=== PATIENT | female | born 1990 | race Two or more races ===

== ENCOUNTER 2022-04-08 07:35 | Emergency (ER) | payer BC, OTHER ==
[2022-04-08 07:44] VITALS: BP 129/81; PULSE 96; RESP 20; TEMP 99.3; BMI 27.4
== END 2022-04-08 08:22 | disposition home or self-care (01) ==
LOC: FER 07:35
PROC: 0HQ1XZZ Repair Face Skin, External Approach (ICD-10-PCS; principal; 2022-04-08)
DX: S01.81XA Laceration without foreign body of other part of head, initial encounter (principal); W18.2XXA Fall in (into) shower or empty bathtub, initial encounter
CPT/HCPCS: 99282-25

== ENCOUNTER 2022-05-18 15:00 | Emergency (ER) | payer OTHER ==
[2022-05-18 15:19] VITALS: BP 149/82; PULSE 76; RESP 18; TEMP 99; BMI 27.4
[2022-05-18] MEDS ORDERED: SODIUM CHLORIDE 1,000 ML IV STA ×2 (15:39→16:33)
[2022-05-18] MEDS ORDERED: ONDANSETRON 4 MG/2 ML VIAL IVPUSH ONE (15:39)
[2022-05-18] MEDS ORDERED: KETOROLAC TROMETHAMINE 15 MG/ML VIAL IVPUSH ONE (15:40)
[2022-05-18] MEDS ORDERED: FAMOTIDINE 20 MG/50 ML IVPB 20 MG/50 ML MG IVPB ONE ×2 (15:40→15:55)
[2022-05-18] MEDS ORDERED: ONDANSETRON 4 MG/2 ML VIAL ONE (15:54)
[2022-05-18] MEDS ORDERED: KETOROLAC TROMETHAMINE 15 MG/ML VIAL ONE (15:55)
[2022-05-18 17:34] LABS: HCG,QUALITATIVE URINE Negative
[2022-05-18] MEDS ORDERED: METOCLOPRAMIDE HCL INJECTION 10 MG/2 ML VIAL IVPB ONE (18:40)
[2022-05-18] MEDS ORDERED: METOCLOPRAMIDE HCL INJECTION 10 MG/2 ML VIAL ONE (18:45)
== END 2022-05-18 20:59 | disposition home or self-care (01) ==
LOC: FER 15:00
PROC: 3E033GC Introduction of Other Therapeutic Substance into Peripheral Vein, Percutaneous Approach (ICD-10-PCS; principal; 2022-05-18)
DX: R11.2 Nausea with vomiting, unspecified (principal); E86.0 Dehydration
CPT/HCPCS: 81003; 84703; 99284-25

== ENCOUNTER 2024-05-25 22:47 | Emergency (ER) | payer BC, OTHER ==
[2024-05-25 22:57] VITALS: BP 141/72; PULSE 61; RESP 18; TEMP 98.1; BMI 24.5
[2024-05-25] MEDS ORDERED: ONDANSETRON *ODT* 4 MG TABLET ONE (22:58)
[2024-05-25] MEDS: ONDANSETRON *ODT* 4 MG TABLET SL ONE (23:01)
[2024-05-25 23:34] LABS: HEMATOCRIT 41.4 % (32.4-45.2); HEMOGLOBIN 13.7 G/dL (10.7-15.3); MCH 30.6 pg (25.7-33.7); MCHC 33.1 g/dl (32.0-36.0); MEAN CELL VOLUME 92.6 fl (80-96); MEAN PLT VOLUME 9.1 fl (7.5-11.1); RBC 4.47 10^6/uL (3.60-5.2); RDW 13.7 % (11.6-15.6); WHITE BLOOD COUNT 12.9 10^3/uL (4.0-10.8)
[2024-05-25 23:41] LABS: PLATELET ESTIMATE ADEQUATE
[2024-05-25 23:44] LABS: INR 1.04 (0.83-1.09); PROTHROMBIN TIME (PATIENT) 11.8 SEC (9.7-13.0)
[2024-05-25 23:52] LABS: ALBUMIN 4.6 g/dl (3.4-5.0); BILIRUBIN,TOTAL 0.4 mg/dl (0.2-1); CALCIUM 9.8 mg/dl (8.5-10.1); POTASSIUM 3.9 mmol/L (3.5-5.1); TOT PROT 7.4 g/dl (6.4-8.2)
[2024-05-26] MEDS: SODIUM CHLORIDE 0.9% 500 ML INFUS.BAG IV ONE
[2024-05-26] MEDS ORDERED: DICYCLOMINE HCL 10 MG CAPSULE ONE (01:42)
[2024-05-26] MEDS: DICYCLOMINE HCL 20 MG TABLET PO ONE (01:43)
[2024-05-26 02:11] LABS: HCG,QUALITATIVE URINE NEGATIVE
[2024-05-26 02:19] LABS: EPI CELLS 20 /uL (0-25.1); HYALINE CASTS 1 /uL (0-3.1); PH,URINE 6.5 (5.0-8.0); URINE APPEARANCE CLEAR; URINE BACTERIA 390 /uL (0-1359); URINE BILIRUBIN NEGATIVE (NEGATIVE); URINE COLOR YELLOW; URINE GLUCOSE (UA) 2+ (NEGATIVE); URINE KETONE 3+ (NEGATIVE); URINE LEUK ESTERASE TRACE (NEGATIVE); URINE NITRITE NEGATIVE (NEGATIVE); URINE PROTEIN NEGATIVE (NEGATIVE); URINE RBC 13 /uL (0-23.9); URINE UROBILINOGEN 0.2 mg/dL (0.2-1.0); URINE WBC 29 /uL (0-25.8)
== END 2024-05-26 01:58 | disposition home or self-care (01) ==
LOC: FER 22:47
DX: K29.00 Acute gastritis without bleeding (principal); R10.84 Generalized abdominal pain; R73.9 Hyperglycemia, unspecified; R11.0 Nausea
CPT/HCPCS: 36415; 74177-TC; 80053; 81003; 81025; 82962; 84703; 85027; 85610; 86850; 86900; 86901; 99285-25; Q0162; Q9967

== ENCOUNTER 2024-08-07 19:30 | Observation (INO) | payer BC ==
[2024-08-07] MEDS ORDERED: HALOPERIDOL LACTATE 5 MG/ML ONE (21:02)
[2024-08-07] MEDS: HALOPERIDOL LACTATE 5 MG/ML IM ONE (21:46)
[2024-08-07] MEDS ORDERED: ACETAMINOPHEN INJECTION 100 ML ONE (23:19)
[2024-08-07 23:39] LABS: HEMATOCRIT 42.8 % (32.4-45.2); HEMOGLOBIN 13.9 GM/dL (10.7-15.3); MCH 29.9 pg (25.7-33.7); MCHC 32.5 g/dl (32.0-36.0); MEAN CELL VOLUME 91.9 fl (80-96); MEAN PLT VOLUME 8.9 fl (7.5-11.1); PLATELET COUNT 310 10^3/uL (134-434); RBC 4.65 M/mm3 (3.60-5.2); RDW 13.2 % (11.6-15.6); WHITE BLOOD COUNT 21.8 K/mm3 (4.0-10.0)
[2024-08-07] MEDS ORDERED: FAMOTIDINE 20 MG/50 ML IVPB 20 MG/50 ML MG IVPB ONE (23:42)
[2024-08-07] MEDS: FAMOTIDINE 20 MG/50 ML IVPB 20 MG/50 ML MG IVPB ONE (23:42)
[2024-08-07] MEDS: SODIUM CHLORIDE 1,000 ML IV STA (23:42)
[2024-08-07] MEDS: ACETAMINOPHEN 1000 MG/100 ML BAG IVPB ONE (23:42)
[2024-08-07 23:58] LABS: POTASSIUM 3.7 mmol/L (3.5-5.1)
[2024-08-08] LABS: ALBUMIN 4.1 g/dl (3.4-5.0); CALCIUM 9.6 mg/dL (8.5-10.1)
[2024-08-08 00:01] LABS: BLOOD UREA NITROGEN 14.1 mg/dL (7-18)
[2024-08-08 00:04] LABS: CREATININE 1.1 mg/dL (0.55-1.3)
[2024-08-08 00:05] LABS: BILIRUBIN,TOTAL 0.6 mg/dL (0.2-1); TOT PROT 8.2 g/dl (6.4-8.2)
[2024-08-08] MEDS ORDERED: POTASSIUM CHLORIDE ORAL LIQUID 20 MEQ/15 ML ONE (00:19)
[2024-08-08] MEDS ORDERED: MAGNESIUM 1GM/D5W - 1 GM/100 ML IVPB IVPB ONE (00:19)
[2024-08-08] MEDS: MAGNESIUM 1GM/D5W - 1 GM/100 ML IVPB IVPB ONE (00:26)
[2024-08-08] MEDS: POTASSIUM CHLORIDE ORAL LIQUID 20 MEQ/15 ML PO ONE (00:26)
[2024-08-08 01:47] LABS: URINE APPEARANCE Error; URINE BILIRUBIN NEGATIVE (NEGATIVE); URINE COLOR YELLOW; URINE GLUCOSE (UA) TRACE (NEGATIVE); URINE KETONE 2+ (NEGATIVE); URINE LEUK ESTERASE NEGATIVE (NEGATIVE); URINE NITRITE NEGATIVE (NEGATIVE); URINE PROTEIN NEGATIVE (NEGATIVE); URINE UROBILINOGEN 0.2 mg/dL (0.2-1.0)
[2024-08-08 01:56] LABS: HCG,QUALITATIVE URINE Negative
[2024-08-08 02:46] LABS: ANISOCYTOSIS 2+; MACROCYTOSIS 0; OVALOCYTE 1+
[2024-08-08] MEDS ORDERED: ONDANSETRON 4 MG/2 ML VIAL IVPUSH PRN (06:29)
[2024-08-08 06:45] VITALS: BMI 25.2
[2024-08-08] MEDS: FLUoxetine HCL 20 MG CAPSULE PO SCH (10:51)
[2024-08-08] MEDS: busPIRone HCL 5 MG TABLET PO SCH (10:52)
[2024-08-08] MEDS: LACTATED RINGERS SOLUTION 1,000 ML/1,000 ML INFUS.BAG IV SCH (10:54)
[2024-08-08 16:04] VITALS: RESP 17
[2024-08-08 17:29] VITALS: BP 111/66; PULSE 93; TEMP 99.5
== END 2024-08-08 16:59 | disposition home or self-care (01) ==
LOC: JER 19:30 → JERBED 08-08 04:50 → J6S 08-08 06:17
PROVIDERS: ADMIT Internal Medicine; ATTEND Internal Medicine
PROC: 3E033GC Introduction of Other Therapeutic Substance into Peripheral Vein, Percutaneous Approach (ICD-10-PCS; principal; 2024-08-08)
PROC: 3E033NZ Introduction of Analgesics, Hypnotics, Sedatives into Peripheral Vein, Percutaneous Approach (ICD-10-PCS; 2024-08-08)
PROC: 3E023NZ Introduction of Analgesics, Hypnotics, Sedatives into Muscle, Percutaneous Approach (ICD-10-PCS; 2024-08-08)
PROC: 3E0337Z Introduction of Electrolytic and Water Balance Substance into Peripheral Vein, Percutaneous Approach (ICD-10-PCS; 2024-08-08)
DX: R11.2 Nausea with vomiting, unspecified (principal); F12.90 Cannabis use, unspecified, uncomplicated; F41.8 Other specified anxiety disorders; D72.829 Elevated white blood cell count, unspecified; Z87.738 Personal history of other specified (corrected) congenital malformations of digestive system
CPT/HCPCS: 36415; 71046-TC-FY; 74177-TC; 80053; 81003; 83735; 84484; 84703; 85025; 87086; 93005; 93010; 96361; 96365; 96367; 96372; 96375; 99285-25; G0378; J0131; Q9967

== ENCOUNTER 2024-11-03 12:57 | Emergency (ER) | payer OTHER ==
[2024-11-03 13:15] VITALS: BP 121/58; PULSE 66; RESP 20; TEMP 98.2; BMI 25.8
[2024-11-03] MEDS ORDERED: ONDANSETRON 4 MG/2 ML VIAL ONE (13:30)
[2024-11-03] MEDS ORDERED: FAMOTIDINE 20 MG/50 ML IVPB 20 MG/50 ML MG IVPB ONE (13:30)
[2024-11-03] MEDS: SODIUM CHLORIDE 1,000 ML IV STA (13:43)
[2024-11-03] MEDS: FAMOTIDINE 20 MG/50 ML IVPB 20 MG/50 ML MG IVPB ONE (13:44)
[2024-11-03] MEDS: ONDANSETRON 4 MG/2 ML VIAL IVPUSH ONE (13:44)
[2024-11-03 14:07] LABS: HEMATOCRIT 41.9 % (32.4-45.2); HEMOGLOBIN 14.1 G/dL (10.7-15.3); MCH 30.3 pg (25.7-33.7); MCHC 33.6 g/dl (32.0-36.0); MEAN CELL VOLUME 90.2 fl (80-96); MEAN PLT VOLUME 9.6 fl (7.5-11.1); PLATELET COUNT 280.2 10^3/uL (134-434); RBC 4.65 10^6/uL (3.60-5.2); RDW 13.4 % (11.6-15.6); WHITE BLOOD COUNT 16.4 10^3/uL (4.0-10.8)
[2024-11-03 14:10] LABS: ALBUMIN 4.6 g/dl (3.4-5.0); BILIRUBIN,TOTAL 0.5 mg/dl (0.2-1); CALCIUM 9.7 mg/dl (8.5-10.1); CREATININE 0.9 mg/dl (0.6-1.3); MAGNESIUM 1.9 mg/dL (1.8-2.4); POTASSIUM 3.7 mmol/L (3.5-5.1); TOT PROT 7.6 g/dl (6.4-8.2)
[2024-11-03 14:40] LABS: PLATELET ESTIMATE ADEQUATE
[2024-11-03 14:45] LABS: INR 0.98 (0.83-1.09); PROTHROMBIN TIME (PATIENT) 11.2 SEC (9.7-13.0)
[2024-11-03] MEDS: ACETAMINOPHEN 1000 MG/100 ML BAG IVPB ONE (15:30)
[2024-11-03 16:15] LABS: HIV INTERPRETATION NEGATIVE (NEGATIVE)
[2024-11-03] MEDS ORDERED: HALOPERIDOL LACTATE 5 MG/ML ONE (16:17)
[2024-11-03] MEDS: HALOPERIDOL LACTATE 5 MG/ML IVPUSH ONE (16:20)
== END 2024-11-03 17:37 | disposition home or self-care (01) ==
LOC: FER 12:57
PROC: 3E033GC Introduction of Other Therapeutic Substance into Peripheral Vein, Percutaneous Approach (ICD-10-PCS; principal; 2024-11-03)
PROC: 3E033NZ Introduction of Analgesics, Hypnotics, Sedatives into Peripheral Vein, Percutaneous Approach (ICD-10-PCS; 2024-11-03)
PROC: 3E033GC Introduction of Other Therapeutic Substance into Peripheral Vein, Percutaneous Approach (ICD-10-PCS; 2024-11-03)
PROC: 3E033GC Introduction of Other Therapeutic Substance into Peripheral Vein, Percutaneous Approach (ICD-10-PCS; 2024-11-03)
DX: R11.2 Nausea with vomiting, unspecified (principal); R10.13 Epigastric pain; R19.7 Diarrhea, unspecified; Z20.822 Contact with and (suspected) exposure to COVID-19
CPT/HCPCS: 0241U-QW; 36415; 80053; 83690; 83735; 85027; 85610; 85730; 86803; 86850; 86900; 86901; 87389; 93005; 99284-25; J0131